=== PATIENT | female | born 1980 | race Caucasian/White ===

== ENCOUNTER 2018-10-24 11:30 | Outpatient (CLI) | payer MEDICAID | END 2018-10-24 11:31 | disposition home or self-care (01) | LOC: RAD 11:30 ==

== ENCOUNTER 2018-10-28 10:27 | Outpatient (CLI) | payer MEDICAID | END 2018-10-28 10:28 | disposition home or self-care (01) | LOC: RAD 10:27 | DX: G40.909 Epilepsy, unspecified, not intractable, without status epilepticus (principal); G60.9 Hereditary and idiopathic neuropathy, unspecified; R42 Dizziness and giddiness ==